=== PATIENT | male | born 1965 | race Two or more races ===

== ENCOUNTER 2024-01-17 08:13 | Outpatient (RCR) | payer MEDICAID, SELFPAY | END 2024-02-01 23:59 | disposition home or self-care (01) | LOC: SCTC 08:13 | PROVIDERS: PCP Physician Assistant; Referring Provider Physician Assistant; Visit Provider Radiology Therapeutic Radiology | DX: Z51.0 Encounter for antineoplastic radiation therapy (principal); C02.8 Malignant neoplasm of overlapping sites of tongue; C77.0 Secondary and unspecified malignant neoplasm of lymph nodes of head, face and neck; K12.33 Oral mucositis (ulcerative) due to radiation; Y84.2 Radiological procedure and radiotherapy as the cause of abnormal reaction of the patient, or of later complication, without mention of misadventure at the time of the procedure | CPT/HCPCS: 77336; 77385 ==

== ENCOUNTER 2024-02-04 09:14 | Outpatient (RCR) | payer MEDICAID, SELFPAY ==
--- NOTE | 2024-02-04 10:31 | CTCTSUMM_ITS ---
[facility] [address], [place] [address] Treatment Summary Date: 02/04/2024 MR#: [id number] Name: MAINOR MORENO : 1965 Dx: C02.8 Referring Physician: Ash Duque MD (A) Diagnosis: [ICD10] C02.8 Malignant neoplasm of overlapping sites of tongue (B) Aim of Treatment: ??Curative (C) Concomitant Chemotherapy: Yes (D) Radiation Dates: 11/12/2023 through 01/17/2024 Treatment Prescription H N VMAT 6 MV PHOT 7,000 cGy 35 200 cGy Approved (E) All murphy were treated using customized MLC Blocks (F) Finding at Discharge: Patient seen for first follow-up on 02/04/2024. There was significant shrin kage of tumor but still fairly prominent in the left neck. There appeared to be a small area of ulce ration in the medial side of the left cheek. Urged continuous use of Magic mouthwash and pain medica tion was renewed. I will see patient again in 2 months with another PET scan. (G) Discharge Instructions and F/U Appt was given: The patient was also advised to continue follow-up with Dr. Duque and primary care physician. Cc: Ash Duque MD Electronically signed by: Eddie Pate MD, DABR 02/04/2024 10:29 AM
== END 2024-03-03 23:59 | disposition home or self-care (01) ==
LOC: SCTC 09:14
PROVIDERS: PCP Physician Assistant; Referring Provider Physician Assistant; Visit Provider Radiology Therapeutic Radiology
DX: C02.8 Malignant neoplasm of overlapping sites of tongue (principal); L59.8 Other specified disorders of the skin and subcutaneous tissue related to radiation; Z92.3 Personal history of irradiation
CPT/HCPCS: 99212; G0463

== ENCOUNTER → 2024-04-27 | Outpatient (CLI) | payer MEDICAID, SELFPAY ==
--- NOTE | 2024-04-27 10:56 | XR_ITS ---
EXAMINATION: PET/CT FUSION SKULL TO THIGH EXAM DATE AND TIME: April 27, 2024 1121 hrs. Comparison September 26, 2023 Indications: Diagnosis cancer of the tongue, post treatment restaging CTDI:vol (mGy) 4.13 DLP: (mGycm) 428.51 PROCEDURE: 15.25 mCi FDG was administered intravenously To allow for distribution and uptake of radiotracer, the patient was allowed to rest quietly in a shielded room. Imaging was performed on an integrated 16-slice PET/CT scanner, with scanning from the skull base to the mid thigh. Serum blood glucose at the time of the injection was measured 115 mg/dL. CT scanning was performed without oral or intravenous contrast material. FINDINGS: Head and Neck: No current oropharyngeal hypermetabolic mass Soft tissue partially hypermetabolic mass posterior to the angle of mandible on the left, 28 mm most consistent with metastatic adenopathy versus residual soft tissue tumor mass Chest: Stable non hypermetabolic 4 mm nodule left upper lobe Abdomen and Pelvis: There is no aissatou hypermetabolism in retroperitoneal or pelvic chains. The spleen is normal in size and FDG avidity. Musculoskeletal: Marrow uptake is within normal range. IMPRESSION: Smaller partially hypermetabolic mass soft tissue left lateral neck, posterior to the angle of mandible, 20 mm, differential would include residual primary tumor versus metastatic lymphadenopathy, clinical correlation advised Stable non hypermetabolic 4 mm pulmonary nodule left upper lobe
== END | disposition home or self-care (01) ==
PROVIDERS: PCP Internal Medicine Hematology & Oncology; Referring Provider Radiology Therapeutic Radiology; Visit Provider Radiology Therapeutic Radiology
DX: R22.1 Localized swelling, mass and lump, neck (principal); R91.1 Solitary pulmonary nodule; C02.8 Malignant neoplasm of overlapping sites of tongue
CPT/HCPCS: 78815; A9552

== ENCOUNTER 2024-05-27 09:35 | Outpatient (RCR) | payer MEDICAID, SELFPAY | END 2024-06-01 23:59 | disposition home or self-care (01) | LOC: SCTC 09:35 | PROVIDERS: Referring Provider Radiology Therapeutic Radiology; Visit Provider Radiology Therapeutic Radiology | DX: C02.8 Malignant neoplasm of overlapping sites of tongue (principal) | CPT/HCPCS: 99213; G0463 ==